=== PATIENT | female | born 1960 | race Caucasian/White ===

== ENCOUNTER 2016-07-07 12:53 | Emergency (ER) | payer OTHER ==
[~2016-07-07] VITALS: Ht 167.6 cm; Wt 65.8 kg
[2016-07-07 12:58] VITALS: BP 162/83
[2016-07-07] MEDS ORDERED: DOXYCYCLINE HY100 M4 PO (13:34)
[2016-07-07] MEDS ORDERED: MOBIC15 M1 PO (13:34)
[2016-07-07] MEDS ORDERED: POLYTRIM EYE DR10 ML OPH (13:34)
[2016-07-07] MEDS ORDERED: HYDROCODON-ACE1 EAC2 PO (13:34)
--- NOTE | 2016-07-07 13:35 | ED GENERAL ADULT ---
History of Present Illness General Chief Complaint: Eye Problems Stated Complaint: EYE PAIN AND SWELLING Source: patient Exam Limitations: no limitations Vital Signs & Intake/Output Vital Signs & Intake/Output Vital Signs Date Time Temp Pulse Resp B/P Pulse O2 O2 Flow FiO2 Ox Delivery Rate 07/07 1258 96.8 75 20 162/83 96 Room Air Allergies Coded Allergies: Sulfa (Sulfonamide Antibiotics) (DIARRHEA 07/07/16) Reconcile Medications Doxycycline Hyclate 100 MG TABLET 1 TAB PO BID belpharitis Hydrocodone/Acetaminophen (Hydrocodon-Acetaminophen 5-325) 5 MG-325 MG TABLET 1-2 TAB PO Q4-6 PRN PRN pain Meloxicam (Mobic) 15 MG TABLET 1 TAB PO DAILY pain Polytrim (Polytrim Eye Drops) 10,000 UNIT-1 MG/ML DROPS 1 GTT OPH Q6 blepharitis Triage Note: PT TO ED C/O ? STYE TO RIGHT EYE. NOTICED THURSDAY, WORSE TODAY. PT ALSO C/O RIGHT SHOULDER PAIN X 1-2 WEEKS. DENIES ANY OBVIOUS INJURY TO SHOULDER. Triage Nurses Notes Reviewed? yes Onset: Abrupt Duration: day(s): Timing: recent history Injury Environment: home No Modifying Factors: none HPI: 55-year-old female comes into emergency room for further evaluation of right eye pain and right shoulder pain. Patient reports that she has had some redness to her right eyelid for the past couple days. Discharge. Denies any vision loss. Nothing seems to make the symptoms better or worse. Patient reports that since she is here she wants to have her right shoulder evaluated. 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 Patient reports pain is worse with range of motion. Patient does a lot of heavy lifting at work. Denies any recent falls or trauma. Pain is worse with range of motion. Past History Travel History Traveled to [place] past 21 day No Medical History Any Pertinent Medical History? see below for history Neurological: multiple sclerosis Surgical History Surgical History: non-contributory Psychosocial History What is your primary language Vietnamese Tobacco Use: Current Daily Use Daily Tobacco Use Amount/Type: => 5 Cigarettes daily ETOH Use: denies use Illicit Drug Use: MEDICAL MARIJUANA Family History Hx Contributory? No Review of Systems Review of Systems Constitutional: Reports: no symptoms. EENTM: Reports: see HPI. Respiratory: Reports: no symptoms. Cardiovascular: Reports: no symptoms. GI: Reports: no symptoms. Genitourinary: Reports: no symptoms. Musculoskeletal: Reports: see HPI. Skin: Reports: no symptoms. Neurological/Psychological: Reports: no symptoms. Hematologic/Endocrine: Reports: no symptoms. Immunologic/Allergic: Reports: no symptoms. All Other Systems: Reviewed and Negative Physical Exam Physical Exam General Appearance: well developed/nourished, no apparent distress, alert Head: atraumatic, normal appearance Eyes: Right: lid inflammation (erythema). Bilateral: PERRL, EOMI. Ears, Nose, Throat: normal ENT inspection Neck: normal inspection Respiratory: normal breath sounds, no respiratory distress Cardiovascular: regular rate/rhythm Gastrointestinal: soft Back: normal inspection Extremities: normal inspection, normal range of motion, no edema Neurologic/Psych: awake, alert, oriented x 3 Skin: intact, normal color Core Measures ACS in differential dx? No CVA/TIA Diagnosis: No Severe Sepsis Present: No Septic Shock Present: No Progress Differential Diagnoses I considered the following diagnoses in my evaluation of the patient: Blepharitis, cellulitis, rotator cuff tendinitis, labral tear, muscle strain, arthritis, Plan of Care: 07/07/2016 2:53:19 PM This patient clinically looks well. Patient is nontoxic appearing. Patient looks to have a blepharitis. Right shoulder pain is consistent with musculoskeletal pain. Worse with range of motion. Return if any other concerns worsening symptoms. Initial ED EKG: none Departure Departure Disposition: HOME OR SELF CARE Condition: Stable Clinical Impression Primary Impression: Blepharitis of eyelid of right eye Secondary Impressions: Rotator cuff tendinitis Referrals: JONO KRAMER,MEENAKSHI Teixeira (PCP/Family) ULISSES KRAMER,JOSSY Additional Instructions: Take Mobic , doxycycline, and Polytrim drops as prescribed. Warm compresses over her right eye. Follow-up with primary care doctor if not better in 3-5 days for recheck. You can follow-up with orthopedic doctor if not better in one week. Please note that there might be incidental findings in your evaluation that are unrelated to the current emergency department visit. Please notify your primary care doctor about this emergency department visit in order to obtain and review all of the testing performed so that these incidental findings can be monitored as needed. If you had an x-ray performed, please understand that some fractures may not be seen on the initial set of x-rays. If your symptoms persist you might need a repeat set of x-rays to check for such a fracture. If you had a laceration evaluated, please understand that foreign bodies such as glass or wood may not be visible to the naked eye or on plain x-rays. If the wound becomes red, swollen, increasingly more painful or if there is any drainage from the wound, please have it reevaluated by a physician for the possibility of a retained foreign body. Departure Forms: Customer Survey General Discharge Information Prescriptions: Current Visit Scripts Doxycycline Hyclate 1 TAB PO BID #14 TAB Polytrim (Polytrim Eye Drops) 1 GTT OPH Q6 #10 ML Hydrocodone/Acetaminophen (Hydrocodon-Acetaminophen 5-325) 1-2 TAB PO Q4-6 PRN PRN pain #10 TAB Meloxicam (Mobic) 1 TAB PO DAILY #15 TAB Critical Care Note Critical Care Note Critical Care Time: non-applicable
== END 2016-07-07 13:47 ==
LOC: ERH 12:53
DX: H01.003 Unspecified blepharitis right eye, unspecified eyelid (principal); M75.81 Other shoulder lesions, right shoulder